=== PATIENT | male | born 1990 | race Caucasian/White ===

== ENCOUNTER 2020-02-14 16:58 | Emergency (ER) | payer MEDICARE, OTHER ==
[~2020-02-14] VITALS: Ht 170.2 cm; Wt 75.0 kg
[~2020-02-14 16:58] MED LIST: CITA-106 PO; DIPH25 PO; OLAN5TAB2 PO
[2020-02-14] MEDS ORDERED: IBUPROFEN 800 MG TABLET PO ONE (17:15)
[2020-02-14 18:06] VITALS: BP 133/84
== END 2020-02-14 18:12 | disposition home or self-care (01) ==
LOC: EMS 17:00
DX: S00.93XA Contusion of unspecified part of head, initial encounter (principal); F41.9 Anxiety disorder, unspecified; F31.9 Bipolar disorder, unspecified; Y04.2XXA Assault by strike against or bumped into by another person, initial encounter; Y93.89 Activity, other specified; Y92.89 Other specified places as the place of occurrence of the external cause; Y99.8 Other external cause status
CPT/HCPCS: 70450